=== PATIENT | female | born 1970 | race Caucasian/White ===

== ENCOUNTER 2017-11-21 16:12 | Observation (INO) | payer OTHER ==
--- NOTE | 2017-11-21 16:18 | PDOC ---
Rapid Medical Evaluation Time Seen by Provider: 11/21/17 16:15 Medical Evaluation: 11/21/17 16:16 I have performed a brief in-person evaluation of this patient. The patient presents with a chief complaint of:allergic reaction from rubar pie x10 mins ago. Throat swelling itchy arms/legs/face PT WAS GIVEN EPIPEN X10 mins ago Pertinent physical exam findings: L/S CTAB I have ordered the following: sent straight to back The patient will proceed to the ED for further evaluation. Discharge Disposition - Referrals Referrals: Alejandra Fisher MD [Primary Care Provider] - - Patient Instructions - Post Discharge Activity
[2017-11-21] MEDS ORDERED: EPINEPHrine/PF 1 MG/1 ML (1:1,000) AMPULE ONE (16:28)
[2017-11-21] MEDS ORDERED: FAMOTIDINE 20 MG/50 ML IVPB 20 MG/50 ML MG IVPB ONE ×2 (16:28→17:00)
[2017-11-21] MEDS ORDERED: methylPREDNISolone NA SUCC 125 MG/2 ML VIAL ONE (16:28)
[2017-11-21] MEDS ORDERED: ALBUTEROL SO4 2.5/IPRATROPIUM 0.5 INH SOL 3 ML VIAL.NEB. NEB ONE ×3 (16:32→21:43)
--- NOTE | 2017-11-21 16:42 | PDOC ---
Attending Attestation - Resident Resident Name: Jake Chou - ED Attending Attestation I have performed the following: I have examined & evaluated the patient, The case was reviewed & discussed with the resident, I agree w/resident's findings & plan, Exceptions are as noted - HPI HPI: 46 yo F presents s/p allergic reaction. 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 Fisher administered epi-pen and referred to ED. Patient has no prior history of known allergies. - Physicial Exam PE: GENERAL: Awake, alert, and fully oriented, in no acute distress HEAD: No signs of trauma EYES: PERRLA, EOMI, sclera anicteric, conjunctiva clear ENT: Auricles normal inspection, hearing grossly normal, nares patent, oropharynx clear without exudates. Moist mucosa NECK: Normal ROM, supple, no lymphadenopathy, JVD, or masses LUNGS: Breath sounds equal, clear to auscultation bilaterally. No wheezes, and no crackles HEART: Regular rate and rhythm, normal S1 and S2, no murmurs, rubs or gallops ABDOMEN: Soft, nontender, normoactive bowel sounds. No guarding, no rebound. No masses EXTREMITIES: Normal range of motion, no edema. No clubbing or cyanosis. No cords, erythema, or tenderness NEUROLOGICAL: Cranial nerves II through XII grossly intact. Normal speech, normal gait SKIN: Warm, Dry, normal turgor. +Slight patchy erythematous rash to hands B/L. - Medical Decision Making Pt with allergic reaction following ingestion of a food she had not had in the past. Gave H1/H2 blockers, epi, solu-medrol on arrival. Will observe in ED for 4 -6 hours to monitor for any rebound reaction.
[2017-11-21] MEDS ORDERED: SODIUM CHLORIDE 0.9% 1000 ML INFUS.BAG IV ONE (16:51)
[2017-11-21] MEDS ORDERED: methylPREDNISolone NA SUCC 125 MG/2 ML VIAL IVPUSH ONE (16:51)
--- NOTE | 2017-11-21 16:54 | PDOC ---
History of Present Illness - General Chief Complaint: Allergic Reaction Stated Complaint: Allergic Reaction Time Seen by Provider: 11/21/17 16:15 History Source: Patient Exam Limitations: No Limitations - History of Present Illness Initial Comments: 11/21/17 16:52 The patient is a 46F with no PMH and no allergies who presents to the ER with complaints of shortness of breath. The patient states that approximately 1 hour ago, she ingested a rhubarb and strawberry pie. Shortly thereafter, she began to develop redness around her ears, neck, and hands, and felt like her throat was closing. She drank approx 20mL of children's benadryl (50mg) and continued to feel short of breath. She called her PCP who gave her an epinephrine injection and told her to go to the ER. She currently complains of shakiness without resolution of her throat swelling sensation. She denies any history of this is the past Past History - Past Medical History Allergies/Adverse Reactions: Allergies Allergy/AdvReac Type Severity Reaction Status Date / Time No Known Allergies Allergy Verified 11/21/17 16:19 Home Medications: Ambulatory Orders NK [No Known Home Medication] 11/21/17 COPD: No - Surgical History Cholecystectomy: Yes - Suicide/Smoking/Psychosocial Hx Smoking History: Never smoked Review of Systems - Review of Systems Able to Perform ROS?: Yes Comments:: 11/21/17 17:09 GENERAL/CONSTITUTIONAL: No fever or chills. No weakness. HEAD, EYES, EARS, NOSE AND THROAT: No change in vision. No ear pain or discharge. No sore throat. CARDIOVASCULAR: No chest pain, palpitations, or lightheadedness. RESPIRATORY: Positive for throat tightening and wheezing. No cough or hemoptysis. GASTROINTESTINAL: No nausea, vomiting, diarrhea, constipation, or abdominal pain. GENITOURINARY: No dysuria, frequency, hematuria, or change in urination. MUSCULOSKELETAL: No joint or muscle swelling or pain. No neck or back pain. SKIN: Positive for redness and itching in hands and face. NEUROLOGIC: No headache, numbness, tingling, focal weakness, loss of consciousness, or change in strength/sensation. ENDOCRINE: No increased thirst. No abnormal weight change. HEMATOLOGIC/LYMPHATIC: No anemia, easy bleeding, or history of blood clots. ALLERGIC/IMMUNOLOGIC: Positive for possible allergic reaction. Is the patient limited Turkish proficient: No *Physical Exam - Vital Signs Last Vital Signs Temp Pulse Resp BP Pulse Ox 98.1 F 109 H 20 155/109 98 11/21/17 16:14 11/21/17 16:51 11/21/17 16:51 11/21/17 16:51 11/21/17 16:51 - Physical Exam Comments: 11/21/17 17:12 GENERAL: Well developed, well nourished. Awake and alert. No acute distress. HEENT: Normocephalic, atraumatic. Hearing grossly normal. Moist mucous membranes. PERRLA, EOMI. No conjunctival pallor. Sclera are non-icteric. Oropharynx is clear, no edema appreciated. NECK: Supple. Full ROM. No JVD. Redness present throughout neck. CARDIOVASCULAR: Tachycardic with regular rhythm. No murmurs, rubs, or gallops. PULMONARY: No evidence of respiratory distress. Mild expiratory wheezing diffusely. ABDOMINAL: Soft. Non-tender. Non-distended. No rebound or guarding. MUSCULOSKELETAL: Normal range of motion at all joints. No bony deformities or tenderness. EXTREMITIES: No cyanosis. No clubbing. No edema. No calf tenderness or swelling. SKIN: Redness around neck and hands. Warm and dry. Normal capillary refill. No jaundice. NEUROLOGICAL: Alert, awake, appropriate. Cranial nerves 2-12 grossly intact. Normal speech. Gait is normal without ataxia. PSYCHIATRIC: Cooperative. Good eye contact. Appropriate mood and affect. Medical Decision Making - Medical Decision Making 11/21/17 17:41 The patient is a 46F with no PMH who presents to the ER after experiencing an allergic reaction. Upon my initial evaluation, the patient was noted to be red and stated that she felt her throat was closing up again. Epi, pepcid, solumedrol, duonebs, and fluids given immediately. Pt noted to be shaking 2/2 epi but in sinus tach with BP 150/90's. After reassessment, the patient was noted to be comfortable without any respiratory complaints and resolution of the erythema on her skin. Will monitor closely. 11/21/17 20:06 The patient was noted to be in NSR. Upon reevaluation, she became tachy again and complains of a "lump in her throat" concerning for worsening of her allergic reaction. Will admit to obs. I have endorsed the patient to Dr. Self for admission. *DC/Admit/Observation/Transfer Diagnosis at time of Disposition: Allergic reaction Qualifiers: Encounter type: initial encounter Qualified Code(s): T78.40XA - Allergy, unspecified, initial encounter - Discharge Dispostion Condition at time of disposition: Guarded Decision to Admit order: Yes - Referrals Referrals: Alejandra Fisher MD [Primary Care Provider] - - Patient Instructions - Post Discharge Activity
[2017-11-21] MEDS ORDERED: EPINEPHrine 1:1,000 0.3 MG/0.3 ML SYR IM ONE (16:56)
[2017-11-21 20:27] LABS: BASO % 0.1 % (0-2.0); HEMOGLOBIN 11.1 GM/dL (10.7-15.3); LYMPH % 5.8 % (8-40); MCH 29.1 pg (25.7-33.7); MCHC 32.6 g/dl (32.0-36.0); MEAN CELL VOLUME 89.3 fl (80-96); MEAN PLT VOLUME 8.4 fl (7.5-11.1); MONO % 0.9 % (3.8-10.2); NEUT % 93.2 % (42.8-82.8); PLATELET COUNT 449 K/MM3 (134-434); RDW 13.3 % (11.6-15.6); WHITE BLOOD COUNT 20.2 K/mm3 (4.0-10.0)
--- NOTE | 2017-11-21 20:39 | PN ---
Teaching Attending Note Name of Resident: Dewayne Mathew ATTENDING PHYSICIAN STATEMENT I saw and evaluated the patient. I reviewed the resident's note and discussed the case with the resident. I agree with the resident's findings and plan as documented. SUBJECTIVE: Patient is a 46 year old woman with no PMH and no known allergies who presents to the ER with complaints of shortness of breath. The patient states that approximately 1 hour ago, she ingested a rhubarb and strawberry pie. Shortly thereafter, she began to develop redness around her ears, neck, and hands, and felt like her throat was closing. She drank approx 20mL of children's benadryl ( 50mg) and continued to feel short of breath. She called her PCP who gave her an epinephrine injection and told her to go to the ER. She currently complains of shakiness without resolution of her throat swelling sensation. She is unable to tolerate solid food and denies any history of this is the past. OBJECTIVE: Alert and obese Vital Signs Period Temp Pulse Resp BP Sys/Lopez Pulse Ox Last 24 Hr 98.1 F 92-113 17-20 142-155/77-109 97-98 HEENT: No Jaundice, eye redness or discharge, PERRLA, EOMI. Normocephalic, atraumatic. External ears are normal and hearing is grossly intact. No nasal discharge. No oropharyngeal edema or erythema; no stridor Neck: Supple, nontender. No palpable adenopathy or thyromegaly. No JVD Chest: Good effort. Clear to auscultation and percussion. Heart: Regular. No S3, rub or murmur Abdomen: Not distended, soft, nontender and no HSM. No rebound or guarding. Normoactive bowel sounds. Ext: Peripheral pulses intact. No leg edema. Skin: Warm and dry. No petechiae, rash or ecchymosis. Neuro: Alert. Oriented x3. CN 2-12 grossly intact. Sensation grossly intact in all four extremities and DTR are symmetric. Home Medications Medication Instructions Recorded NK [No Known Home Medication] 11/21/17 Abnormal Lab Results 11/21/17 11/21/17 20:20 20:20 WBC 20.2 H Plt Count 449 H Absolute Neuts (auto) 18.8 H Neutrophils % 93.2 H Neutrophils % (Manual) 94.0 H Lymphocytes % 5.8 L Lymphocytes % (Manual) 5.0 L Monocytes % 0.9 L Random Glucose 170 H AST 13 L ASSESSMENT AND PLAN: 1. Allergic Reaction - Feeling better after 2 doses of EpiPen. Will continue close monitoring in telemetry, solumedrol, duoneb, IV protonix, benadryl and IV fluids. Will keep emergency tracheostomy kit by her bedside, check HbA1c and keep her NPO. Consult ENT. When clinically stable, recheck BP - may have undiagnosed hypertension. 2. Obesity - Will provide patient all the necessary assistance, counseling and positive reinforcement to facilitate weight loss. Consult store coordinator. 3. DVT prophylaxis - Lovenox 40 mg SQ q 24 hours. 4. Advance directives - Full code
[2017-11-21 21:38] LABS: ALBUMIN 3.5 g/dl (3.4-5.0); ALK PHOS 91 U/L (45-117); ANION GAP 12 MMOL/L (8-16); BILIRUBIN,TOTAL 0.2 mg/dL (0.2-1); BLOOD UREA NITROGEN 9 mg/dL (7-18); CALCIUM 9.4 mg/dL (8.5-10.1); CHLORIDE 107 mmol/L (98-107); CO2 23 mmol/L (21-32); CREATININE 0.9 mg/dL (0.55-1.3); GLUCOSE,RANDOM 170 mg/dL (74-106); PLATELET ESTIMATE SLT INCREASE; POTASSIUM 3.6 mmol/L (3.5-5.1); SGOT/AST 13 U/L (15-37); SGPT/ALT 21 U/L (13-61); SODIUM 141 mmol/L (136-145); TOT PROT 7.4 g/dl (6.4-8.2)
[2017-11-21] MEDS: ALBUTEROL SO4 2.5/IPRATROPIUM 0.5 INH SOL 3 ML VIAL.NEB. NEB SCH (22:21)
--- NOTE | 2017-11-21 22:33 | HP ---
CHIEF COMPLAINT: Allergic reaction, throat tightness PCP: Dr. Alejandra Fisher HISTORY OF PRESENT ILLNESS: 46 yo Female with no PMH presented to the ED with Difficulty breathing, tingling and swelling in her hands b/l, and patchy diffuse erythema after eating a rhubarb strawberry pie. She states that she eats strawberries weekly and has never had a reaction, though she has never had rhubarb before. She says she had the pie at about 3:30 this afternoon and about 10 minutes later she noted a "fiery feeling" in her ears. She also noticed tingling in her hands b/ l. She went to the bathroom to wash her hands, thinking she may have touched something causing the reaction, and she noticed in the mirror that she had redness on her face, chest and arms. 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 During that time she had noticed her throat feeling tight and had trouble talking. She was given an EpiPen injection in the right arm and sent to the ED. Upon arrival to the ED she received a second Epinephrine injection. Most of her symptoms have now resolved, though she does still endorse some throat tightness with intermittent trouble swallowing and talking. She says she has never had a reaction like this before. Of note, she says her only other possible food allergy is shrimp. She says years ago she noticed some swelling in her hands after eating shrimp. She had what she describes as an allergy test done but does not recall exactly all of the things she was sensitive to. Her son has numerous allergies including peanuts, tree pollen, grapes, among others ER course was notable for: (1) Epinephrine, Duonebs, SoluMedrol (2) WBCs 20 (3) Recent Travel: none PAST MEDICAL HISTORY: none PAST SURGICAL HISTORY: none Social History: Smoking: Alcohol: Drugs: Family History: Allergies No Known Allergies Allergy (Verified 11/21/17 16:19) HOME MEDICATIONS: Home Medications Medication Instructions Recorded NK [No Known Home Medication] 11/21/17 REVIEW OF SYSTEMS CONSTITUTIONAL: Absent: fever, chills, diaphoresis, generalized weakness, malaise, loss of appetite, weight change HEENT: difficulty swallowing, throat swelling Absent: rhinorrhea, nasal congestion, throat pain, mouth swelling, ear pain, eye pain, visual changes CARDIOVASCULAR: Absent: chest pain, syncope, palpitations, irregular heart rate, lightheadedness , peripheral edema RESPIRATORY: shortness of breath Absent: cough, , dyspnea with exertion, orthopnea, wheezing, stridor, hemoptysis GASTROINTESTINAL: Absent: abdominal pain, abdominal distension, nausea, vomiting, diarrhea, constipation, melena, hematochezia GENITOURINARY: Absent: dysuria, frequency, urgency, hesitancy, hematuria, flank pain, genital pain MUSCULOSKELETAL: Absent: myalgia, arthralgia, joint swelling, back pain, neck pain SKIN: Absent: rash, itching, pallor HEMATOLOGIC/IMMUNOLOGIC: Absent: easy bleeding, easy bruising, lymphadenopathy, frequent infections ENDOCRINE: Absent: unexplained weight gain, unexplained weight loss, heat intolerance, cold intolerance NEUROLOGIC: Absent: headache, focal weakness or paresthesias, dizziness, unsteady gait, seizure, mental status changes, bladder or bowel incontinence PSYCHIATRIC: Absent: anxiety, depression, suicidal or homicidal ideation, hallucinations. PHYSICAL EXAMINATION Vital Signs - 24 hr 11/21/17 11/21/17 11/21/17 16:14 16:51 16:55 Temperature 98.1 F Pulse Rate 103 H Pulse Rate [ 109 H 92 H Apical] Respiratory 18 20 20 Rate Blood Pressure 142/93 Blood Pressure 155/109 144/89 [Right Arm] O2 Sat by Pulse 97 98 98 Oximetry (%) 11/21/17 11/21/17 11/21/17 17:57 19:23 20:09 Temperature Pulse Rate Pulse Rate [ 103 H 96 H 113 H Apical] Respiratory 20 18 17 Rate Blood Pressure Blood Pressure 154/80 147/77 142/92 [Right Arm] O2 Sat by Pulse 98 98 98 Oximetry (%) GENERAL: A&O, no acute distress HEAD: Normocephalic, atraumatic. EYES: PERRL, no scleral icterus EARS, NOSE, THROAT: oropharynx clear without exudates. Moist mucous membranes. Mallampati 2. No obvious edema of tongue or oropharynx NECK: supple without lymphadenopathy, no stridor noted, though air entry audible on auscultation of the neck LUNGS: CTA b/l, no crackles or wheezes HEART: Tachycardic, regular rhythm, normal S1 and S2 with mild systolic murmur heard best at right sternal border ABDOMEN: Soft, obese, nontender to palpation, normoactive bowel sounds MUSCULOSKELETAL: No bony deformities or tenderness. EXTREMITIES: 2+ pulses, warm, well-perfused. No peripheral edema. NEUROLOGICAL: Cranial nerves II-XII grossly intact. Normal speech. PSYCHIATRIC: Cooperative. Good eye contact. Appropriate mood and affect. SKIN: Warm, dry, no rashes or lesions noted Laboratory Results - last 24 hr 11/21/17 20:20 WBC 20.2 H RBC 3.80 Hgb 11.1 Hct 34.0 MCV 89.3 MCH 29.1 MCHC 32.6 RDW 13.3 Plt Count 449 H MPV 8.4 Absolute Neuts (auto) 18.8 H Neutrophils % 93.2 H Lymphocytes % 5.8 L Monocytes % 0.9 L Eosinophils % 0.0 Basophils % 0.1 Nucleated RBC % 0 ASSESSMENT/PLAN: 46 yo Female with no PMH admitted to tele observation after an anaphylactic reaction to likely rhubarb. Anaphylactic Reaction -Pt given EpiPen prior to ED and epinephrine on ED arrival, still with residual throat tightness, trouble swallowing, and mild difficulty breathing -Will monitor cautiously on telemetry -Emergency Airway Kit recommended in her room in case of bimodal response -Consider ENT evaluation -Duonebs Q4 ZANDRA for 24 hours -SoluMedrol 60 mg IV Q8 -Does not need fluids at this time as pressure is stable Tachycardia -Likely secondary to epinephrine use -Will monitor telemetry DVT Prophylaxis -Lovenox 40 mg SQ Daily FEN -Fluids: None -Electrolytes: No electrolyte abnormalities, BMP in AM -Nutrition: Clear liquids for now, trouble tolerating solids but no issue with liquids, will advance as tolerated Disposition Telemetry Observation Visit type - Emergency Visit Emergency Visit: Yes ED Registration Date: 11/21/17 Care time: The patient presented to the Emergency Department on the above date and was hospitalized for further evaluation of their emergent condition. - New Patient This patient is new to me today: Yes Date on this admission: 11/21/17 - Critical Care Critical Care patient: No Hospitalist Screening - Colonoscopy Questionnaire Colonoscopy Questionnaire: Colonoscopy Questionnaire - Patient: 50 - 75 years old and never had a screening colonoscopy: No History of colon or rectal polyps, or CA: No History of IBD, Crohn's disease or UC: No History of abdominal radiation therapy as a child: No - Relative: 1 with colon or rectal CA, or polyps at age 60 or younger: No Colon or rectal CA diagnosed at age 45 or younger: No Multiple relatives with colon or rectal CA: No - Outcome: Screening Result: Negative Screen
[2017-11-21 23:42] VITALS: BMI 39.7
[2017-11-22] MEDS ORDERED: methylPREDNISolone NA SUCC 125 MG/2 ML VIAL IVPUSH SCH (02:00)
[2017-11-22] MEDS: ALBUTEROL SO4 2.5/IPRATROPIUM 0.5 INH SOL 3 ML VIAL.NEB. NEB SCH ×4 (02:30→14:00)
[2017-11-22] MEDS ORDERED: diphenhydrAMINE HCL 25 MG CAPSULE (FP) PO ONE (06:07)
[2017-11-22 07:28] LABS: BASO % 0.2 % (0-2.0); HEMATOCRIT 32.7 % (32.4-45.2); HEMOGLOBIN 10.6 GM/dL (10.7-15.3); LYMPH % 7.7 % (8-40); MCH 29.1 pg (25.7-33.7); MCHC 32.5 g/dl (32.0-36.0); MEAN CELL VOLUME 89.5 fl (80-96); MEAN PLT VOLUME 8.4 fl (7.5-11.1); MONO % 0.7 % (3.8-10.2); NEUT % 91.4 % (42.8-82.8); PLATELET COUNT 413 K/MM3 (134-434); RBC 3.66 M/mm3 (3.60-5.2); RDW 13.6 % (11.6-15.6); WHITE BLOOD COUNT 23.6 K/mm3 (4.0-10.0)
[2017-11-22 08:01] LABS: MAGNESIUM 1.6 mg/dL (1.8-2.4); PHOSPHOROUS 2.2 mg/dL (2.5-4.9)
[2017-11-22] MEDS ORDERED: MAGNESIUM OXIDE 400 MG TABLET (FP) PO ONE (08:02)
[2017-11-22] MEDS ORDERED: NAPH,MB-DB/K PH,MBDB POWDER PACKET PO ONE (08:02)
--- NOTE | 2017-11-22 09:06 | DS ---
Physical Exam: SUBJECTIVE: Patient seen and examined. states she had some itching in her hands earlier this AM but resolved with benadryl. tolerating liquid diet. states she no longer feels numbness/tingling or swelling of the lips or tongue. shortness of breath resolved. denies Cp, SOB, fever, chills, N/V/c/D, OBJECTIVE: Vital Signs Period Temp Pulse Resp BP Sys/Lopez Pulse Ox Last 24 Hr 98.1 F-98.7 F 92-113 17-20 111-155/50-109 95-98 PHYSICAL EXAM GENERAL: The patient is awake, alert, and fully oriented, in no acute distress. HEAD: Normal with no signs of trauma. EYES: PERRL, extraocular movements intact, sclera anicteric, conjunctiva clear. ENT: Ears normal, nares patent, oropharynx clear without exudates, moist mucous membranes. no stridor, no tongue or lip swelling NECK: Trachea midline, full range of motion, supple. LUNGS: Breath sounds equal, clear to auscultation bilaterally, no wheezes, no crackles, no accessory muscle use. HEART: Regular rate and rhythm, S1, S2 without murmur, rub or gallop. ABDOMEN: Soft, nontender, nondistended, normoactive bowel sounds, no guarding, no rebound, no hepatosplenomegaly, no masses. EXTREMITIES: 2+ pulses, warm, well-perfused, no edema. NEUROLOGICAL: Cranial nerves II through XII grossly intact. Normal speech, gait not observed. PSYCH: Normal mood, normal affect. SKIN: Warm, dry, normal turgor, no rashes or lesions noted. no swelling LABS Laboratory Results - last 24 hr 11/21/17 11/21/17 11/22/17 20:20 20:20 06:00 WBC 20.2 H 23.6 H RBC 3.80 3.66 Hgb 11.1 10.6 L Hct 34.0 32.7 MCV 89.3 89.5 MCH 29.1 29.1 MCHC 32.6 32.5 RDW 13.3 13.6 Plt Count 449 H 413 MPV 8.4 8.4 Absolute Neuts (auto) 18.8 H 21.6 H Total Counted 100 Neutrophils % 93.2 H 91.4 H Neutrophils % (Manual) 94.0 H Band Neutrophils % 1.0 Lymphocytes % 5.8 L 7.7 L D Lymphocytes % (Manual) 5.0 L Monocytes % 0.9 L 0.7 L Eosinophils % 0.0 0.0 Basophils % 0.1 0.2 Nucleated RBC % 0 0 Differential Comment Man diff performed Platelet Estimate Slt increase Platelet Comment Sodium 141 Potassium 3.6 Chloride 107 Carbon Dioxide 23 Anion Gap 12 BUN 9 Creatinine 0.9 Creat Clearance w eGFR > 60 Random Glucose 170 H Calcium 9.4 Phosphorus Magnesium Total Bilirubin 0.2 AST 13 L ALT 21 Alkaline Phosphatase 91 Creatine Kinase 72 Troponin I < 0.02 Total Protein 7.4 Albumin 3.5 11/22/17 06:00 WBC RBC Hgb Hct MCV MCH MCHC RDW Plt Count MPV Absolute Neuts (auto) Total Counted Neutrophils % Neutrophils % (Manual) Band Neutrophils % Lymphocytes % Lymphocytes % (Manual) Monocytes % Eosinophils % Basophils % Nucleated RBC % Differential Comment Platelet Estimate Platelet Comment Sodium Potassium Chloride Carbon Dioxide Anion Gap BUN Creatinine Creat Clearance w eGFR Random Glucose Calcium Phosphorus 2.2 L Magnesium 1.6 L Total Bilirubin AST ALT Alkaline Phosphatase Creatine Kinase Troponin I Total Protein Albumin HOSPITAL COURSE: Date of Admission:11/21/17 Date of Discharge: 11/22/17 Admitting diagnosis: Allergic reaction, anaphlaxis Pre hospital course 46 yo Female with no PMH presented to the ED with Difficulty breathing, tingling and swelling in her hands b/l, and patchy diffuse erythema after eating a rhubarb strawberry pie. She states that she eats strawberries weekly and has never had a reaction, though she has never had rhubarb before. She says she had the pie at about 3:30 this afternoon and about 10 minutes later she noted a "fiery feeling" in her ears. She also noticed tingling in her hands b/ l. She went to the bathroom to wash her hands, thinking she may have touched something causing the reaction, and she noticed in the mirror that she had redness on her face, chest and arms. 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 During that time she had noticed her throat feeling tight and had trouble talking. She was given an EpiPen injection in the right arm and sent to the ED. Upon arrival to the ED she received a second Epinephrine injection. Most of her symptoms have now resolved, though she does still endorse some throat tightness with intermittent trouble swallowing and talking. She says she has never had a reaction like this before. Of note, she says her only other possible food allergy is shrimp. She says years ago she noticed some swelling in her hands after eating shrimp. She had what she describes as an allergy test done but does not recall exactly all of the things she was sensitive to. Her son has numerous allergies including peanuts, tree pollen, grapes, among others Subsequent hospital course Observed overnight. received epi-pen x2, albuterol, steroids, pepcid and benadryl with resolution of her symptoms. no events overnight. symptoms resolved. tolerated diet. educated on importance of avoidance of foods and using an epi-pen. encouraged to see roller coaster engineer for further testing. d/c home Minutes to complete discharge: 40 Discharge Summary Reason For Visit: ALLERGIC REACTION Current Active Problems Allergic reaction (Acute) Condition: Improved - Instructions Diet, Activity, Other Instructions: You were observed overnight due to an allergic reaction to something you have eaten AVOID eating strawberry Rhubarb pie or anything that carries the same ingredients. You can take benadryl as needed for itchying You are being provided with an epi-pen. You should carry one with you at all times in case you develop similar symptoms. Information on how to use one on yourself has been provided. It is recommended that you have family members also learn how to use one in the event that they may have to. You will need to see an roller coaster engineer to do further testing to determine what you are allergic to. Information on one in the area has been provided. Follow up with your primary care doctor this week. Return to the ER if you develop swelling, itching or numbness of the lips or tongue or difficulty breathing Referrals: Alejandra Fisher MD [Primary Care Provider] - Scarlet Hou MD [Staff Physician] - Disposition: HOME - Home Medications Comprehensive Discharge Medication List: Ambulatory Orders Epinephrine [Epipen 2-Dayron] 0.3 mg IJ ASDIR #1 kit 11/22/17 This patient is new to me today: Yes Date on this admission: 11/22/17 Emergency Visit: Yes ED Registration Date: 11/21/17 Care time: The patient presented to the Emergency Department on the above date and was hospitalized for further evaluation of their emergent condition. Critical Care patient: No - Discharge Referral Referred to [facility] Med [facility] No
[2017-11-22 09:33] LABS: ANISOCYTOSIS 1+; MACROCYTOSIS 0; PLATELET ESTIMATE NORMAL
[2017-11-22] MEDS ORDERED: ENOXAPARIN NA (PORCINE) 40 MG/0.4 ML DISP.SYRIN SQ SCH (10:00)
[2017-11-22 14:31] VITALS: BP 126/74; PULSE 108; TEMP 98.7
--- NOTE | 2017-11-22 15:35 | EKG ---
Test Reason : Blood Pressure : / mmHG Vent. Rate : 101 BPM Atrial Rate : 101 BPM P-R Int : 164 ms QRS Dur : 104 ms QT Int : 354 ms P-R-T Axes : 055 031 018 degrees QTc Int : 459 ms SINUS TACHYCARDIA POSSIBLE LEFT ATRIAL ENLARGEMENT BORDERLINE ECG NO PREVIOUS ECGS AVAILABLE Confirmed by MD Clayton, Federico ([id number]) on 11/22/2017 3:35:26 PM Referred By: Confirmed By:Federico Arnold MD
== END 2017-11-22 14:32 | disposition home or self-care (01) ==
LOC: JER 16:12 → JERBED 20:08 → J4S 21:22
PROVIDERS: ADMIT Internal Medicine; ATTEND Internal Medicine
PROC: 3E0F7GC Introduction of Other Therapeutic Substance into Respiratory Tract, Via Natural or Artificial Opening (ICD-10-PCS; principal; 2017-11-21)
PROC: 3E0F7GC Introduction of Other Therapeutic Substance into Respiratory Tract, Via Natural or Artificial Opening (ICD-10-PCS; 2017-11-21)
PROC: 3E033GC Introduction of Other Therapeutic Substance into Peripheral Vein, Percutaneous Approach (ICD-10-PCS; 2017-11-21)
PROC: 3E033GC Introduction of Other Therapeutic Substance into Peripheral Vein, Percutaneous Approach (ICD-10-PCS; 2017-11-21)
PROC: 3E033GC Introduction of Other Therapeutic Substance into Peripheral Vein, Percutaneous Approach (ICD-10-PCS; 2017-11-21)
PROC: 3E0333Z Introduction of Anti-inflammatory into Peripheral Vein, Percutaneous Approach (ICD-10-PCS; 2017-11-21)
PROC: 3E0333Z Introduction of Anti-inflammatory into Peripheral Vein, Percutaneous Approach (ICD-10-PCS; 2017-11-21)
PROC: 3E0F7GC Introduction of Other Therapeutic Substance into Respiratory Tract, Via Natural or Artificial Opening (ICD-10-PCS; 2017-11-21)
DX: T78.09XA Anaphylactic reaction due to other food products, initial encounter (principal); R00.0 Tachycardia, unspecified; T44.5X5A Adverse effect of predominantly beta-adrenoreceptor agonists, initial encounter; Y92.89 Other specified places as the place of occurrence of the external cause; E66.9 Obesity, unspecified; Z68.37 Body mass index [BMI] 37.0-37.9, adult
CPT/HCPCS: 36415; 80053; 82550; 83735; 84100; 84484; 85025; 93005; 93010; 94640; 99285-25; G0378; J7030; J7620

== ENCOUNTER 2019-03-02 14:41 | Emergency (ER) | payer OTHER ==
[2019-03-02 15:07] VITALS: BP 142/66; PULSE 69; TEMP 98.6; BMI 40.2
--- NOTE | 2019-03-02 15:59 | PDOC ---
History of Present Illness - General Chief Complaint: Abscess Boil Stated Complaint: ARM CYST Time Seen by Provider: 03/02/19 15:42 - History of Present Illness Initial Comments: 03/02/19 15:57 48-year-old female without comorbidities presents for abscess on her left axilla which is been present for 5 days. She is on a course of Augmentin and topical Bactroban she has no systemic symptoms. Past History - Past Medical History Allergies/Adverse Reactions: Allergies Allergy/AdvReac Type Severity Reaction Status Date / Time No Known Allergies Allergy Verified 03/02/19 15:04 Home Medications: Ambulatory Orders EPINEPHrine (EPI-PEN 0.3MG) [Epipen 0.3MG -] 0.3 mg IM ASDIR #2 pens 11/22/17 Anemia: No Asthma: No Cancer: No Cardiac Disorders: No CVA: No COPD: No CHF: No Dementia: No Diabetes: No GI Disorders: No Disorders: No HTN: No Hypercholesterolemia: No Liver Disease: No Seizures: No Thyroid Disease: No - Surgical History Cholecystectomy: Yes - Immunization History Immunization Up to Date: Yes - Psycho Social/Smoking Cessation Hx Smoking History: Never smoked Have you smoked in the past 12 months: No Information on smoking cessation initiated: No Hx Alcohol Use: No Drug/Substance Use Hx: No Substance Use Type: None Hx Substance Use Treatment: No Review of Systems - Review of Systems Constitutional: No: Fever Integumentary: Yes: Lesions, Lumps *Physical Exam - Vital Signs Last Vital Signs Temp Pulse Resp BP Pulse Ox 98.6 F 69 15 142/66 99 03/02/19 15:04 03/02/19 15:04 03/02/19 15:04 03/02/19 15:04 03/02/19 15:04 - Physical Exam 03/02/19 15:57 Left axilla skin color and temperature normal. There is a firm tender indurated mass on the left axilla without fluctuance left upper extremity is neurovascular intact Medical Decision Making - Medical Decision Making 03/02/19 15:58 This is an abscess which is not ready to be drained. Patient will continue p.o. Augmentin and topical Bactroban and follow-up with general surgery Discharge - Discharge Information Problems reviewed: Yes Clinical Impression/Diagnosis: Abscess Condition: Stable Disposition: HOME - Admission No - Follow up/Referral Referrals: Jackson Wynn MD [Staff Physician] - - Patient Discharge Instructions Additional Instructions: Warm compresses 5-6 times a day as discussed. Tylenol and Motrin for pain as directed. Continue the antibiotics both oral and topical as directed. Return to the emergency room for worsening symptoms. And without fail follow-up with general surgery in 2 to 3 days for further evaluation and treatment options. - Post Discharge Activity
== END 2019-03-02 16:00 | disposition home or self-care (01) ==
LOC: JERFT 14:41
DX: L02.412 Cutaneous abscess of left axilla (principal)
CPT/HCPCS: 99281-25

== ENCOUNTER 2020-07-06 04:31 | Day surgery (SDC) | payer OTHER ==
[2020-07-06 10:43] VITALS: BMI 34.7
[2020-07-06 14:18] VITALS: TEMP 97.9
[2020-07-06 14:43] VITALS: BP 119/75; PULSE 69
== END 2020-07-06 14:30 | disposition home or self-care (01) ==
LOC: JRADIR 04:31
PROVIDERS: ATTEND Internal Medicine Hematology & Oncology
PROC: 07D23ZX Extraction of Left Neck Lymphatic, Percutaneous Approach, Diagnostic (ICD-10-PCS; principal; 2020-07-06)
DX: C82.11 Follicular lymphoma grade II, lymph nodes of head, face, and neck (principal)
CPT/HCPCS: 38505; 76942-TC; 87899

== ENCOUNTER 2020-08-15 22:27 | Observation (INO) | payer OTHER ==
[2020-08-16] MEDS ORDERED: ASPIRIN 81 MG CHEWABLE TABLETS PO ONE (00:42)
[2020-08-16] MEDS ORDERED: ASPIRIN 81 MG CHEWABLE TABLETS ONE (02:25)
[2020-08-16 03:20] LABS: INR 0.95 (0.83-1.09); PROTHROMBIN TIME (PATIENT) 11.7 SEC (9.7-13.0)
[2020-08-16 03:23] LABS: ACTIVATED PTT 29.2 SECONDS (25.2-36.5)
[2020-08-16] MEDS ORDERED: MAGNESIUM SULF 50% (8.12 MEQ/2 ML-1 GM VIAL) IVPB ONE ×2 (04:57→05:17)
[2020-08-16] MEDS ORDERED: LOSARTAN POTASSIUM 25 MG TABLET PO ONE (05:48)
[2020-08-16] MEDS ORDERED: MAGNESIUM 1GM/D5W - 1 GM/100 ML IVPB IVPB ONE (07:09)
[2020-08-16] MEDS ORDERED: ALPRAZolam 1 MG TABLET PO PRN (08:11)
[2020-08-16 08:29] LABS: CHLORIDE 106 mmol/L (98-107); SODIUM 138 mmol/L (136-145)
[2020-08-16 08:31] LABS: ALBUMIN 3.5 g/dl (3.4-5.0)
[2020-08-16 08:32] LABS: ANION GAP 6 MMOL/L (8-16); BLOOD UREA NITROGEN 8.6 mg/dL (7-18); CO2 26 mmol/L (21-32); GLUCOSE,RANDOM 96 mg/dL (74-106)
[2020-08-16 08:35] LABS: CREATININE 0.7 mg/dL (0.55-1.3); SGOT/AST 13 U/L (15-37); SGPT/ALT 20 U/L (13-61)
[2020-08-16 08:36] LABS: BILIRUBIN,TOTAL 0.5 mg/dL (0.2-1); TOT PROT 6.9 g/dl (6.4-8.2)
[2020-08-16 08:37] LABS: ALK PHOS 79 U/L (45-117)
[2020-08-16 08:40] LABS: N-TERMINAL BNP 30.5 pg/ml (5-125)
[2020-08-16 09:49] LABS: URINE APPEARANCE CLEAR; URINE BILIRUBIN NEGATIVE (NEGATIVE); URINE COLOR YELLOW; URINE GLUCOSE (UA) NEGATIVE (NEGATIVE); URINE KETONE NEGATIVE (NEGATIVE); URINE LEUK ESTERASE NEGATIVE (NEGATIVE); URINE NITRITE NEGATIVE (NEGATIVE); URINE PROTEIN NEGATIVE (NEGATIVE); URINE UROBILINOGEN 0.2 mg/dL (0.2-1.0)
[2020-08-16 09:49] LABS: BASO % 0.3 % (0-2.0); HEMOGLOBIN 11.6 GM/dL (10.7-15.3); MCH 29.1 pg (25.7-33.7); MCHC 33.1 g/dl (32.0-36.0); MEAN CELL VOLUME 87.8 fl (80-96); MEAN PLT VOLUME 8.5 fl (7.5-11.1); MONO % 6.9 % (3.8-10.2); NEUT % 75.8 % (42.8-82.8); PLATELET COUNT 296 10^3/uL (134-434); RBC 3.99 M/mm3 (3.60-5.2); RDW 13.8 % (11.6-15.6); WHITE BLOOD COUNT 11.1 K/mm3 (4.0-10.0)
[2020-08-16 09:58] LABS: HCG,QUALITATIVE URINE Negative
[2020-08-16] MEDS ORDERED: ALPRAZolam 0.25 MG TABLET ONE (10:04)
[2020-08-16] MEDS: LOSARTAN POTASSIUM 25 MG TABLET PO SCH ×2 (10:08→21:55)
[2020-08-16] MEDS ORDERED: IBUPROFEN 600 MG TABLET (FP) PO ONE (11:48)
[2020-08-16] MEDS ORDERED: ALPRAZolam 0.25 MG TABLET PO PRN (20:00)
[2020-08-17 00:54] VITALS: BMI 37.3
[2020-08-17 07:06] LABS: HEMATOCRIT 35.5 % (32.4-45.2); HEMOGLOBIN 11.8 GM/dL (10.7-15.3); MCH 29.1 pg (25.7-33.7); MCHC 33.2 g/dl (32.0-36.0); MEAN CELL VOLUME 87.7 fl (80-96); MEAN PLT VOLUME 8.9 fl (7.5-11.1); PLATELET COUNT 283 10^3/uL (134-434); RBC 4.05 M/mm3 (3.60-5.2); RDW 13.7 % (11.6-15.6); WHITE BLOOD COUNT 11.2 K/mm3 (4.0-10.0)
[2020-08-17 07:29] LABS: CALCIUM 8.7 mg/dL (8.5-10.1)
[2020-08-17 07:30] LABS: ALBUMIN 3.2 g/dl (3.4-5.0); BLOOD UREA NITROGEN 6.7 mg/dL (7-18)
[2020-08-17 07:32] LABS: CREATININE 0.6 mg/dL (0.55-1.3)
[2020-08-17 07:33] LABS: PHOSPHOROUS 3.1 mg/dL (2.5-4.9)
[2020-08-17 07:34] LABS: BILIRUBIN,TOTAL 0.7 mg/dL (0.2-1); TOT PROT 6.4 g/dl (6.4-8.2)
[2020-08-17] MEDS ORDERED: LORATADINE 10 MG TABLET PO SCH (10:00)
[2020-08-17] MEDS: LOSARTAN POTASSIUM 25 MG TABLET PO SCH (10:38)
[2020-08-17 15:54] VITALS: BP 146/88; PULSE 6; TEMP 98.4
== END 2020-08-17 16:15 | disposition home or self-care (01) ==
LOC: JER 22:27 → JERBED 08-16 04:42 → J4W 08-16 20:21
PROVIDERS: ADMIT Hospitalist; ATTEND Internal Medicine
DX: R07.9 Chest pain, unspecified (principal); F41.9 Anxiety disorder, unspecified; I10 Essential (primary) hypertension; D72.829 Elevated white blood cell count, unspecified; E55.9 Vitamin D deficiency, unspecified; E78.5 Hyperlipidemia, unspecified; C85.90 Non-Hodgkin lymphoma, unspecified, unspecified site; R59.0 Localized enlarged lymph nodes; I25.2 Old myocardial infarction; E66.9 Obesity, unspecified; Z68.37 Body mass index [BMI] 37.0-37.9, adult; Z91.018 Allergy to other foods
CPT/HCPCS: 36415; 71046-TC-FY; 80053; 81003; 82550; 83615; 83735; 83880; 84100; 84484; 84703; 85025; 85027; 85379; 85610; 85730; 93005; 93010; 93306-TC; 93351; 99285-25; C9803; G0378; U0003; U0005

== ENCOUNTER 2020-10-24 04:41 | Day surgery (SDC) | payer OTHER ==
[2020-10-20 13:28] VITALS: BMI 37.2
[2020-10-24] MEDS ORDERED: fentaNYL CITRATE/PF 1,000 MCG/20 ML AMPUL IVPUSH ONE (12:00)
[2020-10-24] MEDS ORDERED: MIDAZOLAM HCL 2 MG/2 ML SINGLE DOSE VIAL IVPUSH ONE ×2 (12:00→12:15)
[2020-10-24 14:09] VITALS: BP 105/66; PULSE 65; TEMP 97.8
== END 2020-10-24 13:40 | disposition home or self-care (01) ==
LOC: JRADIR 04:41
PROVIDERS: ATTEND Internal Medicine Hematology & Oncology
PROC: 0SB90ZX Excision of Right Hip Joint, Open Approach, Diagnostic (ICD-10-PCS; principal; 2020-10-24)
DX: R59.1 Generalized enlarged lymph nodes (principal); I10 Essential (primary) hypertension
CPT/HCPCS: 20225; 77012-TC; 81025

== ENCOUNTER 2021-05-02 10:12 | Day surgery (SDC) | payer OTHER ==
[2021-05-02 11:07] LABS: BASO % 0.6 % (0-2.0); HEMATOCRIT 22.3 % (32.4-45.2); LYMPH % 30.6 % (8-40); MCHC 29.5 g/dl (32.0-36.0); MEAN CELL VOLUME 62.1 fl (80-96); MEAN PLT VOLUME 7.3 fl (7.5-11.1); MONO % 9.9 % (3.8-10.2); NEUT % 56.9 % (42.8-82.8); PLATELET COUNT 518 10^3/uL (134-434); RBC 3.58 M/mm3 (3.60-5.2); RDW 18.6 % (11.6-15.6); WHITE BLOOD COUNT 8.7 K/mm3 (4.0-10.0)
[2021-05-02 11:10] LABS: MCH 18.3 pg (25.7-33.7)
[2021-05-02 11:13] LABS: HEMOGLOBIN 6.6 GM/dL (10.7-15.3)
[2021-05-02 11:27] LABS: ALBUMIN 3.4 g/dl (3.4-5.0); BLOOD UREA NITROGEN 12.2 mg/dL (7-18); CALCIUM 8.7 mg/dL (8.5-10.1)
[2021-05-02 11:31] LABS: CREATININE 0.8 mg/dL (0.55-1.3)
[2021-05-02 11:32] LABS: BILIRUBIN,TOTAL 0.5 mg/dL (0.2-1)
[2021-05-02 11:50] LABS: ERYTHROCYTE SEDIMENTATION RATE 29 mm/hr (0-20)
[2021-05-02 11:52] LABS: ANISOCYTOSIS 2+; MACROCYTOSIS 0; OVALOCYTE 2+
[2021-05-02] MEDS ORDERED: FERRIC CARBOXYMALTOSE 750 MG in SODIUM CHLORIDE 250 ML IVPB ONE (13:15)
[2021-05-02 17:13] VITALS: TEMP 98
[2021-05-02 17:43] VITALS: BP 131/67; PULSE 68
== END 2021-05-02 14:30 | disposition home or self-care (01) ==
LOC: JONCNONCHE 10:12 → JLAB 10:12 → JONCNONCHE 14:30
PROVIDERS: ATTEND Internal Medicine Hematology & Oncology
DX: D50.9 Iron deficiency anemia, unspecified (principal)
CPT/HCPCS: 36415; 80053; 82607; 82728; 83540; 83550; 83615; 84439; 84443; 84703; 85025; 85651; 86140; 96365; J1439

== ENCOUNTER 2021-05-04 11:48 | Day surgery (SDC) | payer OTHER ==
[2021-05-04 10:47] LABS: HEMATOCRIT 23.2 % (32.4-45.2); MCHC 29.2 g/dl (32.0-36.0); MEAN CELL VOLUME 63.4 fl (80-96); MEAN PLT VOLUME 7.4 fl (7.5-11.1); PLATELET COUNT 552 10^3/uL (134-434); RBC 3.66 M/mm3 (3.60-5.2); RDW 19.2 % (11.6-15.6); WHITE BLOOD COUNT 12.2 K/mm3 (4.0-10.0)
[2021-05-04 10:51] LABS: MCH 18.5 pg (25.7-33.7)
[2021-05-04 10:57] LABS: HEMOGLOBIN 6.8 GM/dL (10.7-15.3)
[2021-05-04 11:12] LABS: ALBUMIN 3.6 g/dl (3.4-5.0); BLOOD UREA NITROGEN 10.7 mg/dL (7-18)
[2021-05-04 11:14] LABS: CREATININE 0.7 mg/dL (0.55-1.3)
[2021-05-04 11:16] LABS: BILIRUBIN,TOTAL 0.2 mg/dL (0.2-1); TOT PROT 7.4 g/dl (6.4-8.2)
[2021-05-04 11:22] LABS: ANISOCYTOSIS 3+; MACROCYTOSIS 0
[2021-05-04 16:06] VITALS: PULSE 79
[2021-05-04 16:42] VITALS: BP 114/78; TEMP 98
== END 2021-05-04 16:51 | disposition home or self-care (01) ==
LOC: JONCBLOOD 11:48
PROVIDERS: ATTEND Internal Medicine Hematology & Oncology
PROC: 30233H1 Transfusion of Nonautologous Whole Blood into Peripheral Vein, Percutaneous Approach (ICD-10-PCS; principal; 2021-05-04)
DX: C82.28 Follicular lymphoma grade III, unspecified, lymph nodes of multiple sites (principal)
CPT/HCPCS: 36415; 36430; 36511; 80053; 82728; 82747; 83540; 83550; 85014; 85025; 86850; 86900; 86901; 86922; P9038; P9058

== ENCOUNTER 2021-05-09 08:44 | Day surgery (SDC) | payer OTHER ==
[2021-05-09 10:37] LABS: BASO % 0.3 % (0-2.0); EOS % 1.7 % (0-4.5); HEMATOCRIT 29.5 % (32.4-45.2); HEMOGLOBIN 9.2 GM/dL (10.7-15.3); LYMPH % 18.9 % (8-40); MCH 22.4 pg (25.7-33.7); MCHC 31.2 g/dl (32.0-36.0); MEAN CELL VOLUME 71.7 fl (80-96); MEAN PLT VOLUME 7.3 fl (7.5-11.1); MONO % 7.5 % (3.8-10.2); NEUT % 71.6 % (42.8-82.8); PLATELET COUNT 385 10^3/uL (134-434); RBC 4.11 M/mm3 (3.60-5.2); RDW 25.1 % (11.6-15.6); WHITE BLOOD COUNT 10.5 K/mm3 (4.0-10.0)
[2021-05-09 11:28] LABS: ANISOCYTOSIS 3+; MACROCYTOSIS 0; OVALOCYTE 2+
[2021-05-09] MEDS ORDERED: FERRIC CARBOXYMALTOSE 750 MG in SODIUM CHLORIDE 250 ML IVPB ONE (12:00)
[2021-05-09 17:27] VITALS: BP 102/20; PULSE 59; TEMP 98.2
== END 2021-05-09 14:00 | disposition home or self-care (01) ==
LOC: JONCNONCHE 08:44
PROVIDERS: ATTEND Internal Medicine Hematology & Oncology
PROC: 3E033GC Introduction of Other Therapeutic Substance into Peripheral Vein, Percutaneous Approach (ICD-10-PCS; principal; 2021-05-09)
DX: D50.9 Iron deficiency anemia, unspecified (principal)
CPT/HCPCS: 36415; 85025; 96365; J1439

== ENCOUNTER 2021-06-14 07:06 | Day surgery (SDC) | payer OTHER ==
[2021-06-14] MEDS ORDERED: FERRIC CARBOXYMALTOSE 750 MG in SODIUM CHLORIDE 250 ML IVPB ONE (10:00)
[2021-06-14 17:46] VITALS: TEMP 98.3
[2021-06-14 18:29] VITALS: BP 143/78; PULSE 67
== END 2021-06-14 18:59 | disposition home or self-care (01) ==
LOC: JONCNONCHE 07:06
PROVIDERS: ATTEND Internal Medicine Hematology & Oncology
PROC: 3E033GC Introduction of Other Therapeutic Substance into Peripheral Vein, Percutaneous Approach (ICD-10-PCS; principal; 2021-06-14)
DX: E61.1 Iron deficiency (principal)
CPT/HCPCS: 36415; 84100; 84703; 96365; J1439

== ENCOUNTER 2022-04-12 10:37 | Day surgery (SDC) | payer OTHER ==
[2022-04-12] MEDS ORDERED: FERRIC CARBOXYMALTOSE 750 MG in SODIUM CHLORIDE 250 ML IVPB ONE (11:30)
[2022-04-12 16:40] VITALS: RESP 18; TEMP 98.6
[2022-04-12 16:48] VITALS: BP 126/61; PULSE 65
== END 2022-04-12 12:50 | disposition home or self-care (01) ==
LOC: JONCNONCHE 10:37
PROVIDERS: ATTEND Thoracic Surgery (Cardiothoracic Vascular Surgery)
PROC: 3E033GC Introduction of Other Therapeutic Substance into Peripheral Vein, Percutaneous Approach (ICD-10-PCS; principal; 2022-04-12)
DX: D50.9 Iron deficiency anemia, unspecified (principal)
CPT/HCPCS: 96365; J1439

== ENCOUNTER 2022-04-19 10:55 | Day surgery (SDC) | payer OTHER ==
[2022-04-19] MEDS ORDERED: FERRIC CARBOXYMALTOSE 750 MG in SODIUM CHLORIDE 250 ML IVPB ONE (11:00)
[2022-04-19 16:02] VITALS: RESP 18; TEMP 98.2
[2022-04-19 16:07] VITALS: BP 124/58; PULSE 62
== END 2022-04-19 12:45 | disposition home or self-care (01) ==
LOC: JONCNONCHE 10:55
PROVIDERS: ATTEND Thoracic Surgery (Cardiothoracic Vascular Surgery)
PROC: 3E033GC Introduction of Other Therapeutic Substance into Peripheral Vein, Percutaneous Approach (ICD-10-PCS; principal; 2022-04-19)
DX: D50.9 Iron deficiency anemia, unspecified (principal)
CPT/HCPCS: 96365; J1439

== ENCOUNTER → 2023-12-10 | Day surgery (SDC) | payer OTHER | END | disposition home or self-care (01) | LOC: JRADUS-SUR 09:37 | PROVIDERS: ATTEND Obstetrics & Gynecology | PROC: 07B63ZX Excision of Left Axillary Lymphatic, Percutaneous Approach, Diagnostic (ICD-10-PCS; principal; 2023-12-10) | DX: R59.0 Localized enlarged lymph nodes (principal); Z85.72 Personal history of non-Hodgkin lymphomas | CPT/HCPCS: 19083; 76942-TC; 87899; 88305-TC; A4648 ==

== ENCOUNTER 2024-02-11 04:34 | Day surgery (SDC) | payer OTHER ==
[2024-02-09 17:53] VITALS: BMI 39.6
[2024-02-11] MEDS ORDERED: BUPIVACAINE HCL/PF 0.5% (5MG/ML) 10 ML VIAL ONE (11:47)
[2024-02-11] MEDS ORDERED: PROPOFOL 40 ML ONE (11:59)
[2024-02-11] MEDS ORDERED: MIDAZOLAM HCL 2 MG/2 ML SINGLE DOSE VIAL ONE (11:59)
[2024-02-11] MEDS ORDERED: ALBUTEROL SO4 HFA INHALER IH ONE (12:35)
[2024-02-11] MEDS: ceFAZolin 2 GRAM PREMIX BAG IVPB ONE (12:50)
[2024-02-11] MEDS: BUPIVACAINE HCL/PF 0.5% (5 MG/ML) 30 ML VIAL IJ ONE ×2 (13:10)
[2024-02-11] MEDS ORDERED: oxyCODONE HCL 5 MG TABLET PO PRN (13:33)
[2024-02-11] MEDS ORDERED: LACTATED RINGERS SOLUTION 1,000 ML IV SCH (13:45)
[2024-02-11] MEDS ORDERED: ACETAMINOPHEN INJECTION 100 ML ONE (13:47)
[2024-02-11] MEDS: ACETAMINOPHEN 1000 MG/100 ML BAG IVPB ONE (13:48)
[2024-02-11 15:54] VITALS: RESP 18
[2024-02-11 17:30] VITALS: BP 118/74; PULSE 78; TEMP 97.6
== END 2024-02-11 17:15 | disposition home or self-care (01) ==
LOC: JASU-SURG 04:34
PROVIDERS: ATTEND Surgery Surgical Oncology
PROC: 07B60ZX Excision of Left Axillary Lymphatic, Open Approach, Diagnostic (ICD-10-PCS; principal; 2024-02-11 12:00)
DX: C85.14 Unspecified B-cell lymphoma, lymph nodes of axilla and upper limb (principal)
CPT/HCPCS: 19281; 76098-TC-FY; 88307-TC; 94760; A4648; J0131